=== PATIENT | male | born 1985 | race Caucasian/White ===

== ENCOUNTER 2018-08-08 11:35 | Inpatient (IN) | payer MEDICAID, OTHER ==
[2018-08-08] MEDS ORDERED: NS 1,000 ML IV ONE (12:53)
[2018-08-08 13:52] LABS: PLATELET COUNT 303 10^3/uL (150-400)
[2018-08-08] MEDS ORDERED: ONDANSETRON DISINTEGRATING 4 MG TAB PO PRN (15:20)
[2018-08-08] MEDS ORDERED: ACETAMINOPHEN 325 MG TAB PO PRN (15:20)
[2018-08-08] MEDS ORDERED: ONDANSETRON 4 MG/2 ML VIAL IVP PRN (15:20)
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
--- NOTE | 2018-08-08 17:35 | ASMTCMCOM ---
CM Note CM Note Notes: Reviewed chart. Pt presented to the Emergency Department with complaints of "cramping all over," N/V. History includes depression with psychotic features, prior suicide attempts, ETOH. Pt is single and lives in [place]. Pt reports drinking 3-4 drinks/day. He is receiving treatment at [facility]. Pt admitted for further observation and treatment. Discharge needs remain unclear at this time. Anticipate pt will likely discharge independently when medically stable. CM will continue to follow for any potential needs. Discharge Plan: To be determined, likely independent Date Signed: 08/08/2018 05:34 PM Electronically Signed By:Glory Cabrera RN
[2018-08-08] MEDS ORDERED: DEXAMETHASONE 4 MG TAB PO SCH (21:00)
[2018-08-08] MEDS: PRAZOSIN HCL 1 MG CAP PO SCH (21:23)
[2018-08-08] MEDS: LOXAPINE SUCCINATE 50 MG CAP PO SCH (21:23)
[2018-08-08] MEDS: risperiDONE 2 MG TAB PO SCH (21:23)
[2018-08-08] MEDS: TRIHEXYPHENIDYL HCL 2 MG TAB PO SCH (21:23)
[2018-08-09] MEDS: NS 1,000 ML IV SCH ×3 (00:05→16:38)
[2018-08-09] MEDS: TRIHEXYPHENIDYL HCL 2 MG TAB PO SCH ×2 (11:17→21:41)
[2018-08-09] MEDS: FLUoxetine 10 MG CAP PO SCH (11:17)
[2018-08-09] MEDS: OMEGA-3 FATTY ACIDS 1,000 MG CAP PO SCH (11:17)
[2018-08-09] MEDS: buPROPion XL 150 MG TAB PO SCH (11:17)
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
--- NOTE | 2018-08-09 16:03 | PDMN ---
Medical Necessity [place] [facility] [place] Acute Renal Failure, 3 days: 33 yo w/ c/o diffuse body cramping, n/v and diarrhea. Eval reveals DEREK Cr 2.5 r/t volume depletion. Pt hyponatremic 130, hypercalciam 11.5, phos elevated at 8 on admit. Initially OBS for workup/tx but pt requires additional MN for ongoing IVF as pt still w/ s /sx dehydration, creat still elevated, urine concentrated. Assess stool sample. Change to IP status 08/09/18@1440 per MD order. Hx depression w/ psychotic features, prior suicide attemps, abd surgery, daily etoh use.
[2018-08-09] MEDS: LOXAPINE SUCCINATE 50 MG CAP PO SCH (21:40)
[2018-08-09] MEDS: risperiDONE 2 MG TAB PO SCH (21:41)
[2018-08-09] MEDS: PRAZOSIN HCL 1 MG CAP PO SCH (21:41)
[2018-08-10 07:31] VITALS: BP 104/69
--- NOTE | 2018-08-10 08:41 | ASMTCMCOM ---
CM Note CM Note Notes: Met with Pt and chart reviewed for discharge. Thom is a 33 year old admitted with body cramping, nausea vomiting and chronic diarrhea resulting in Acute renal failure and dehydration. Pt has a history of Depression with psychotic features, prior suicide attempt, and Alcohol abuse when not taking Antabuse. Pt has his appetite back and had a good breakfast this morning. Discussed with Pt resources to help stop drinking alcohol. Pt is associated with AA, [facility] and others. Pt has a new roommate that does not drink and thinks it will help. CM available for needs. PLAN: Likely discharge home to his apartment in [place]. Date Signed: 08/10/2018 08:40 AM Electronically Signed By:Carolyn Styles
[2018-08-10] MEDS: NS 1,000 ML IV SCH (09:03)
[2018-08-10] MEDS: FLUoxetine 10 MG CAP PO SCH (10:22)
[2018-08-10] MEDS: OMEGA-3 FATTY ACIDS 1,000 MG CAP PO SCH (10:22)
[2018-08-10] MEDS: buPROPion XL 150 MG TAB PO SCH (10:22)
[2018-08-10] MEDS: TRIHEXYPHENIDYL HCL 2 MG TAB PO SCH (10:22)
--- NOTE | 2018-08-10 23:47 | GDS ---
[f rep st] DISCHARGE SUMMARY DISCHARGE DIAGNOSES: 1. Acute renal failure due to dehydration. 2. Chronic diarrhea. 3. Depression. HISTORY: The patient is a 33-year-old male who presented with cramping. He was found to have signif icant renal failure with a creatinine of 2.6. His other laboratory abnormalities included severe hem oconcentration with a hemoglobin of 21.8, low sodium of 132, anion gap metabolic acidosis, high phosp horous. All laboratory abnormalities resolved with IV fluid hydration. This does appear to be a pre tty extreme episode of dehydration compared to his history and presentation. However, given its rapi d resolution, I think that is the underlying diagnosis. He has a history of chronic diarrhea. During this hospitalization he had a formed stool that was rej ected by the lab for GI PCRs. It was too formed. He has not seen a primary care doctor regarding th manuel findings. It is recommended that he have close outpatient followup with [facility] for repe at labs and workup of his chronic diarrhea. DISCHARGE MEDICATIONS: Please see computerized record for full detailed list. There were no new med ications given at the time of hospital discharge. ADDITIONAL DISCHARGE INSTRUCTIONS: Follow up at [facility]. Greater than 30 minutes' time was spent arranging this discharge. /[id number]/MODL
== END 2018-08-10 11:21 | disposition home or self-care (01) | DRG 469 ==
LOC: F1N 15:49 → OBSVTOIN 08-09 14:40
PROVIDERS: ADMIT Internal Medicine; ATTEND Internal Medicine
DX: N17.9 Acute kidney failure, unspecified (principal); E86.0 Dehydration; E83.39 Other disorders of phosphorus metabolism; E83.52 Hypercalcemia; R19.7 Diarrhea, unspecified; F10.10 Alcohol abuse, uncomplicated; E87.2 Acidosis
CPT/HCPCS: G0378